=== PATIENT | female | born 1985 | race Hispanic/Latino ===

== ENCOUNTER 2017-05-25 19:18 | Emergency (ER) | payer MEDICAID, OTHER ==
[2017-05-25 20:08] LABS: APPEARANCE,URINE Clear (CLEAR); BILIRUBIN,URINE Negative (NEGATIVE); COLOR,URINE Yellow (YELLOW); GLUCOSE, URINE (UA) Negative (NEGATIVE); KETONES,URINE Negative (NEGATIVE); LEUKOCYTE ESTERASE ,URINE Negative (NEGATIVE); NITRATE,URINE Negative (NEGATIVE); OCCULT BLOOD,URINE Negative (NEGATIVE); PROTEIN,URINE Negative (NEGATIVE)
[2017-05-25 20:10] LABS: HCG,QUAL RESULT NEGATIVE (NEGATIVE)
[2017-05-25 20:33] LABS: BASOPHILS % (AUTO) 0.9 % (0.0-5.0); EOSINOPHILS % (AUTO) 1.2 % (0.0-8.0); HEMATOCRIT 37.6 % (36-48); LYMPHOCYTES % (AUTO) 26.7 % (21.0-51.0); MEAN CORPUSCULAR HEMOGLOBIN 30.8 pg (27.0-33.0); MEAN CORPUSCULAR HGB CONC 34.9 g/dL (32.0-36.0); MEAN CORPUSCULAR VOLUME 88.4 fL (79-99); MONOCYTES % (AUTO) 7.9 % (3.0-13.0); NEUTROPHILS % (AUTO) 63.3 % (40.0-77.0); NUCLEATED RED BLOOD CELLS 0.1 % (0.0-0.19); PLATELET COUNT (AUTO) 442 K/uL (130-400); RED BLOOD CELL COUNT(AUTO) 4.25 MIL/uL (4.00-5.50)
[2017-05-25 20:43] LABS: CREATININE 0.8 mg/dL (0.5-1.5); POTASSIUM 4.1 mmol/L (3.5-5.1)
== END 2017-05-25 23:21 | disposition home or self-care (01) ==
LOC: EDH 19:18
DX: R10.31 Right lower quadrant pain (principal); R10.32 Left lower quadrant pain; Z98.890 Other specified postprocedural states
CPT/HCPCS: 36415; 74176; 80048; 81003; 81025; 83690; 85025

== ENCOUNTER 2018-04-05 17:52 | Emergency (ER) | payer SELFPAY | END 2018-04-05 18:37 | disposition home or self-care (01) | LOC: EDH 17:52 | DX: G89.29 Other chronic pain (principal); R10.13 Epigastric pain; F41.1 Generalized anxiety disorder | CPT/HCPCS: 99281 ==

== ENCOUNTER 2018-07-06 20:33 | Emergency (ER) | payer MEDICAID ==
[2018-07-06 21:35] LABS: APPEARANCE,URINE Clear (CLEAR); BILIRUBIN,URINE Negative (NEGATIVE); COLOR,URINE Yellow (YELLOW); GLUCOSE, URINE (UA) Negative (NEGATIVE); KETONES,URINE Trace mg/dL (NEGATIVE); LEUKOCYTE ESTERASE ,URINE Negative (NEGATIVE); NITRATE,URINE Negative (NEGATIVE); OCCULT BLOOD,URINE Negative (NEGATIVE); PH,URINE 6.5 (5.0-8.0); PROTEIN,URINE Negative (NEGATIVE); UROBILINOGEN,URINE 0.2 mg/dL (0.2-1.0)
[2018-07-06 21:35] LABS: BASOPHILS % (AUTO) 0.6 % (0.0-5.0); EOSINOPHILS % (AUTO) 0.9 % (0.0-8.0); HEMATOCRIT 35.3 % (36-48); LYMPHOCYTES % (AUTO) 20.9 % (21.0-51.0); MEAN CORPUSCULAR HEMOGLOBIN 30.2 pg (27.0-33.0); MEAN CORPUSCULAR HGB CONC 33.9 g/dL (32.0-36.0); MEAN CORPUSCULAR VOLUME 89.1 fL (79-99); MONOCYTES % (AUTO) 7.1 % (3.0-13.0); NEUTROPHILS % (AUTO) 70.5 % (40.0-77.0); PLATELET COUNT (AUTO) 362 K/uL (130-400); RED BLOOD CELL COUNT(AUTO) 3.96 MIL/uL (4.00-5.50); RED CELL DISTRIBUTION WIDTH 13.6 % (11.0-15.5); WHITE BLOOD COUNT (AUTO) 12.6 K/uL (4.8-10.8)
[2018-07-06 21:51] LABS: CREATININE 0.6 mg/dL (0.5-1.5); POTASSIUM 3.5 mmol/L (3.5-5.1)
[2018-07-06 21:55] LABS: AMPHET/METH SCREEN,URINE NEGATIVE (NEGATIVE); BARBITURATE SCREEN, URINE NEGATIVE (NEGATIVE); BENZODIAZEPINES SCREEN,URINE NEGATIVE (NEGATIVE); CANNABINOID SCREEN,URINE NEGATIVE (NEGATIVE); COCAINE SCREEN,URINE NEGATIVE (NEGATIVE); OPIATE SCREEN,URINE NEGATIVE (NEGATIVE); PHENCYCLIDINE SCREEN,URINE NEGATIVE (NEGATIVE)
[2018-07-06 21:56] LABS: ALBUMIN 3.2 g/dL (3.5-5.0); BILIRUBIN,TOTAL 0.1 mg/dL (0.2-1.0); TOTAL PROTEIN, SERUM 6.8 g/dL (6.0-8.3)
== END 2018-07-06 22:27 | disposition home or self-care (01) ==
LOC: EDH 20:33
DX: O99.342 Other mental disorders complicating pregnancy, second trimester (principal); F41.9 Anxiety disorder, unspecified; O26.892 Other specified pregnancy related conditions, second trimester; R53.1 Weakness; Z3A.14 14 weeks gestation of pregnancy; Z98.890 Other specified postprocedural states
CPT/HCPCS: 36415; 80053; 80305; 81003; 85025

== ENCOUNTER 2018-12-18 11:11 | Emergency (ER) | payer MEDICAID ==
[2018-12-18] MEDS ORDERED: TETRACAINE HCL 0.5% 4 ML OPHTH SOLN ONE (11:35)
[2018-12-18] MEDS ORDERED: FLUORESCEIN SODIUM 1 STRIP STRIP ONE (11:35)
[2018-12-18] MEDS ORDERED: ACETAMINOPHEN 325 MG TAB ONE (11:44)
[2018-12-18] MEDS ORDERED: DIPHENHYDRAMINE HCL 25 MG CAPSULE ONE (11:45)
== END 2018-12-18 11:57 | disposition home or self-care (01) ==
LOC: EDH 11:11
DX: O9A.213 Injury, poisoning and certain other consequences of external causes complicating pregnancy, third trimester (principal); O26.893 Other specified pregnancy related conditions, third trimester; H18.822 Corneal disorder due to contact lens, left eye; Z3A.37 37 weeks gestation of pregnancy
CPT/HCPCS: 99284; Q0163

== ENCOUNTER 2019-05-01 17:27 | Emergency (ER) | payer MEDICAID, OTHER ==
[2019-05-01 18:00] LABS: BASOPHILS % (AUTO) 0.4 % (0.0-5.0); EOSINOPHILS % (AUTO) 1.1 % (0.0-8.0); HEMATOCRIT 38.6 % (36-48); LYMPHOCYTES % (AUTO) 33.1 % (21.0-51.0); MEAN CORPUSCULAR HEMOGLOBIN 27.9 pg (27.0-33.0); MEAN CORPUSCULAR HGB CONC 32.9 g/dL (32.0-36.0); MEAN CORPUSCULAR VOLUME 84.8 fL (79-99); MONOCYTES % (AUTO) 9.3 % (3.0-13.0); NEUTROPHILS % (AUTO) 55.8 % (40.0-77.0); PLATELET COUNT (AUTO) 413 K/uL (130-400); RED BLOOD CELL COUNT(AUTO) 4.55 MIL/uL (4.00-5.50); RED CELL DISTRIBUTION WIDTH 14.8 % (11.0-15.5); WHITE BLOOD COUNT (AUTO) 7.6 K/uL (4.8-10.8)
[2019-05-01 18:15] LABS: APPEARANCE,URINE Cloudy (CLEAR); BILIRUBIN,URINE Negative (NEGATIVE); COLOR,URINE Yellow (YELLOW); GLUCOSE, URINE (UA) Negative (NEGATIVE); KETONES,URINE Negative (NEGATIVE); LEUKOCYTE ESTERASE ,URINE Trace (NEGATIVE); NITRATE,URINE Negative (NEGATIVE); OCCULT BLOOD,URINE Moderate (NEGATIVE); PH,URINE 6.5 (5.0-8.0); PROTEIN,URINE Negative (NEGATIVE)
[2019-05-01 18:22] LABS: HCG,QUAL RESULT NEGATIVE (NEGATIVE)
[2019-05-01 18:23] LABS: AMPHET/METH SCREEN,URINE NEGATIVE (NEGATIVE); BARBITURATE SCREEN, URINE NEGATIVE (NEGATIVE); BENZODIAZEPINES SCREEN,URINE NEGATIVE (NEGATIVE); CANNABINOID SCREEN,URINE NEGATIVE (NEGATIVE); COCAINE SCREEN,URINE NEGATIVE (NEGATIVE); OPIATE SCREEN,URINE NEGATIVE (NEGATIVE); PHENCYCLIDINE SCREEN,URINE NEGATIVE (NEGATIVE)
[2019-05-01 18:24] LABS: CREATININE 0.8 mg/dL (0.5-1.5); POTASSIUM 3.6 mmol/L (3.5-5.1)
[2019-05-01] MEDS ORDERED: KETOROLAC TROMETHAMINE 30MG/ML ONE (18:25)
[2019-05-01] MEDS ORDERED: ONDANSETRON ODT 4 MG TAB ONE (18:25)
[2019-05-01] MEDS ORDERED: SODIUM CHLORIDE 0.9% 1000ML 1,000 ML IV ONE (18:25)
[2019-05-01] MEDS ORDERED: ONDANSETRON HCL 4 MG/2 ML VIAL ONE (18:27)
[2019-05-01 18:37] LABS: ALBUMIN 3.9 g/dL (3.5-5.0); BILIRUBIN,DIRECT 0.1 mg/dL (0.0-0.3); BILIRUBIN,TOTAL 0.3 mg/dL (0.2-1.0); TOTAL PROTEIN, SERUM 7.6 g/dL (6.0-8.3)
[2019-05-01 18:52] LABS: BACTERIA,URINE Moderate /HPF (None Seen); MUCUS,URINE Few LPF (None Seen); SQUAMOUS EPITHELIAL CELL,UR Many /HPF (0-2)
== END 2019-05-01 20:09 | disposition home or self-care (01) ==
LOC: EDH 17:27
DX: K29.00 Acute gastritis without bleeding (principal)
CPT/HCPCS: 36415; 76705; 80048; 80076; 80305; 81001; 81025; 82550; 83690; 85025; 96361; 96374; 96375; 99285; J1885; J2405; J7030

== ENCOUNTER 2019-11-14 10:15 | Emergency (ER) | payer MEDICAID ==
[2019-11-14 10:34] LABS: BASOPHILS % (AUTO) 0.5 % (0.0-5.0); EOSINOPHILS % (AUTO) 0.7 % (0.0-8.0); HEMATOCRIT 39.6 % (36-48); LYMPHOCYTES % (AUTO) 27.7 % (21.0-51.0); MEAN CORPUSCULAR HGB CONC 33.3 g/dL (32.0-36.0); MONOCYTES % (AUTO) 6.4 % (3.0-13.0); NEUTROPHILS % (AUTO) 64.5 % (40.0-77.0); PLATELET COUNT (AUTO) 420 K/uL (130-400); RED BLOOD CELL COUNT(AUTO) 4.55 MIL/uL (4.00-5.50); RED CELL DISTRIBUTION WIDTH 14.7 % (11.0-15.5); WHITE BLOOD COUNT (AUTO) 8.2 K/uL (4.8-10.8)
[2019-11-14 10:54] LABS: CREATININE 0.8 mg/dL (0.5-1.5); POTASSIUM 3.5 mmol/L (3.5-5.1)
[2019-11-14 10:59] LABS: ALBUMIN 3.6 g/dL (3.5-5.0); BILIRUBIN,TOTAL 0.4 mg/dL (0.2-1.0); TOTAL PROTEIN, SERUM 7.2 g/dL (6.0-8.3)
[2019-11-14 11:04] LABS: CREATINE KINASE, TOTAL 61 U/L (21-232); MYOGLOBIN 29 ng/mL (10-92); TROPONIN I < 0.04 ng/mL (0.00-0.06)
[2019-11-14] MEDS ORDERED: ACETAMINOPHEN 325 MG TAB ONE (12:00)
== END 2019-11-14 12:19 | disposition home or self-care (01) ==
LOC: EDH 10:15
DX: R07.89 Other chest pain (principal); K20.9 Esophagitis, unspecified; F43.0 Acute stress reaction; Z20.828 Contact with and (suspected) exposure to other viral communicable diseases; F41.9 Anxiety disorder, unspecified; Z98.890 Other specified postprocedural states
CPT/HCPCS: 36415; 80053; 81025; 82550; 83874; 84484; 85025; 87426; 93005; 99284; U0003

== ENCOUNTER 2019-11-29 22:42 | Emergency (ER) | payer MEDICAID ==
[2019-11-29] MEDS ORDERED: SODIUM CHLORIDE 0.9% 1000ML 1,000 ML IV ONE (22:43)
[2019-11-29 23:02] LABS: BASOPHILS % (AUTO) 0.5 % (0.0-5.0); EOSINOPHILS % (AUTO) 1.3 % (0.0-8.0); HEMATOCRIT 36.7 % (36-48); LYMPHOCYTES % (AUTO) 38.8 % (21.0-51.0); MEAN CORPUSCULAR HEMOGLOBIN 29.4 pg (27.0-33.0); MEAN CORPUSCULAR HGB CONC 34.1 g/dL (32.0-36.0); MEAN CORPUSCULAR VOLUME 86.4 fL (79-99); MONOCYTES % (AUTO) 8.8 % (3.0-13.0); NEUTROPHILS % (AUTO) 50.4 % (40.0-77.0); PLATELET COUNT (AUTO) 392 K/uL (130-400); RED BLOOD CELL COUNT(AUTO) 4.25 MIL/uL (4.00-5.50); RED CELL DISTRIBUTION WIDTH 14.4 % (11.0-15.5); WHITE BLOOD COUNT (AUTO) 9.7 K/uL (4.8-10.8)
[2019-11-29 23:11] LABS: CREATININE 0.9 mg/dL (0.5-1.5); POTASSIUM 3.9 mmol/L (3.5-5.1)
[2019-11-29 23:16] LABS: ALBUMIN 3.8 g/dL (3.5-5.0); BILIRUBIN,TOTAL 0.2 mg/dL (0.2-1.0); TOTAL PROTEIN, SERUM 7.3 g/dL (6.0-8.3)
[2019-11-29] MEDS ORDERED: KETOROLAC TROMETHAMINE 30MG/ML ONE (23:43)
[2019-11-30] MEDS ORDERED: CYCLOBENZAPRINE HCL 10 MG TABLET ONE (00:37)
== END 2019-11-30 01:10 | disposition home or self-care (01) ==
LOC: EDH 22:42
DX: R07.89 Other chest pain (principal); M62.830 Muscle spasm of back; F45.8 Other somatoform disorders; R51 Headache; F41.9 Anxiety disorder, unspecified; Z79.899 Other long term (current) drug therapy; Z98.890 Other specified postprocedural states
CPT/HCPCS: 36415; 80053; 84484; 85025; 93005; 96361; 96374; 99284; J1885; J7030

== ENCOUNTER 2023-11-02 10:43 | Emergency (ER) | payer BC, MEDICAID ==
[~2023-11-02] VITALS: Ht 157.5 cm; Wt 90.7 kg
[2023-11-02 11:25] LABS: BASOPHILS # (AUTO) 0.05 K/uL (0.00-0.20); BASOPHILS % (AUTO) 0.8 % (0.0-5.0); EOSINOPHILS # (AUTO) 0.08 K/uL (0.00-0.70); EOSINOPHILS % (AUTO) 1.2 % (0.0-8.0); HEMATOCRIT 40.4 % (36-48); IMMATURE GRANULOCYTE ABSOLUTE 0.02 K/uL (0-1); LYMPHOCYTES # (AUTO) 2.4 K/uL (1.0-4.8); LYMPHOCYTES % (AUTO) 36.1 % (21.0-51.0); MEAN CORPUSCULAR HEMOGLOBIN 30.7 pg (27.0-33.0); MEAN CORPUSCULAR HGB CONC 34.7 g/dL (32.0-36.0); MEAN CORPUSCULAR VOLUME 88.6 fL (79-99); MONOCYTES # (AUTO) 0.7 K/uL (0.1-1.0); MONOCYTES % (AUTO) 10.5 % (3.0-13.0); NEUTROPHILS # (AUTO) 3.4 K/uL (1.8-7.7); NEUTROPHILS % (AUTO) 51.1 % (40.0-77.0); PLATELET COUNT (AUTO) 370 K/uL (130-400); RED BLOOD CELL COUNT(AUTO) 4.56 MIL/uL (4.00-5.50); RED CELL DISTRIBUTION WIDTH 13.4 % (11.0-15.5); WHITE BLOOD COUNT (AUTO) 6.7 K/uL (4.8-10.8)
[2023-11-02 11:27] LABS: CREATININE 0.7 mg/dL (0.5-1.0); POTASSIUM 3.7 mmol/L (3.5-5.1)
[2023-11-02 11:31] LABS: BILIRUBIN,TOTAL 0.6 mg/dL (0.2-1.0); TOTAL PROTEIN, SERUM 7.8 g/dL (6.0-8.3)
[2023-11-02] MEDS: MAG/ALUM/SIMETH 30 ML UDCUP PO ONE (11:36)
[2023-11-02] MEDS: DICYCLOMINE HCL 10 MG/5 ML ML PO ONE (11:36)
[2023-11-02] MEDS: 0.9%NACL 1000ML 1,000 ML IV ONE (11:36)
[2023-11-02] MEDS: FAMOTIDINE 20MG VIAL IV ONE (11:36)
[2023-11-02] MEDS: LIDOCAINE HCL 2% VISCOUS 15 ML UDCUP PO ONE (11:36)
[2023-11-02 11:42] LABS: APPEARANCE,URINE CLEAR (CLEAR); BILIRUBIN,URINE NEGATIVE (NEGATIVE); COLOR,URINE LIGHT-YELLOW (YELLOW); GLUCOSE, URINE (UA) NEGATIVE (NEGATIVE); KETONES,URINE NEGATIVE (NEGATIVE); LEUKOCYTE ESTERASE ,URINE NEGATIVE Leu/uL (NEGATIVE); NITRATE,URINE NEGATIVE (NEGATIVE); OCCULT BLOOD,URINE NEGATIVE (NEGATIVE); PH,URINE 6.5 (5.0-8.0); PROTEIN,URINE NEGATIVE (NEGATIVE); UROBILINOGEN,URINE 0.2 mg/dL (0.2-1.0)
[2023-11-02 11:47] LABS: ADD UA MICROSCOPIC NO
[2023-11-02] MEDS ORDERED: SUCR1TAB28 PO (12:07)
[2023-11-02 12:53] VITALS: BP 137/59; PULSE 66; RESP 20; O2SAT 99
== END 2023-11-02 12:54 | disposition home or self-care (01) ==
LOC: EDH 10:43
DX: K29.00 Acute gastritis without bleeding (principal); Z79.899 Other long term (current) drug therapy
CPT/HCPCS: 99284; 96374; 96361; 80053; 83690; 85025; 81003; 81025; 36415; J3490; J7030

== ENCOUNTER 2024-03-16 21:20 | Emergency (ER) | payer BC ==
[~2024-03-16] VITALS: Ht 157.5 cm; Wt 91.2 kg
[~2024-03-16 21:20] MED LIST: SUCR1TAB28 PO
[2024-03-16 22:01] LABS: BASOPHILS # (AUTO) 0.05 K/uL (0.00-0.20); BASOPHILS % (AUTO) 0.5 % (0.0-5.0); EOSINOPHILS # (AUTO) 0.13 K/uL (0.00-0.70); EOSINOPHILS % (AUTO) 1.3 % (0.0-8.0); HEMATOCRIT 37.2 % (36-48); IMMATURE GRANULOCYTE ABSOLUTE 0.02 K/uL (0-1); LYMPHOCYTES # (AUTO) 3.3 K/uL (1.0-4.8); LYMPHOCYTES % (AUTO) 32.9 % (21.0-51.0); MEAN CORPUSCULAR HEMOGLOBIN 29.8 pg (27.0-33.0); MEAN CORPUSCULAR HGB CONC 33.9 g/dL (32.0-36.0); MEAN CORPUSCULAR VOLUME 87.9 fL (79-99); MONOCYTES # (AUTO) 0.9 K/uL (0.1-1.0); MONOCYTES % (AUTO) 9.2 % (3.0-13.0); NEUTROPHILS # (AUTO) 5.7 K/uL (1.8-7.7); NEUTROPHILS % (AUTO) 55.9 % (40.0-77.0); PLATELET COUNT (AUTO) 400 K/uL (130-400); RED BLOOD CELL COUNT(AUTO) 4.23 MIL/uL (4.00-5.50); RED CELL DISTRIBUTION WIDTH 13.5 % (11.0-15.5); WHITE BLOOD COUNT (AUTO) 10.1 K/uL (4.8-10.8)
[2024-03-16 22:08] LABS: CREATININE 0.8 mg/dL (0.5-1.0); POTASSIUM 3.9 mmol/L (3.5-5.1)
[2024-03-17 00:30] LABS: ALBUMIN 3.8 g/dL (3.5-5.0); BILIRUBIN,DIRECT 0.1 mg/dL (0.0-0.3); BILIRUBIN,TOTAL 0.3 mg/dL (0.2-1.0); TOTAL PROTEIN, SERUM 7.3 g/dL (6.0-8.3)
[2024-03-17 01:06] LABS: ADD UA MICROSCOPIC YES; APPEARANCE,URINE CLEAR (CLEAR); BILIRUBIN,URINE NEGATIVE (NEGATIVE); COLOR,URINE LIGHT-YELLOW (YELLOW); GLUCOSE, URINE (UA) NEGATIVE (NEGATIVE); KETONES,URINE 10 mg/dL (NEGATIVE); LEUKOCYTE ESTERASE ,URINE NEGATIVE Leu/uL (NEGATIVE); NITRATE,URINE NEGATIVE (NEGATIVE); OCCULT BLOOD,URINE NEGATIVE (NEGATIVE); PH,URINE 6.5 (5.0-8.0); PROTEIN,URINE NEGATIVE (NEGATIVE); UROBILINOGEN,URINE 0.2 mg/dL (0.2-1.0)
[2024-03-17 01:07] LABS: BACTERIA,URINE FEW /HPF (None Seen); MUCUS,URINE RARE LPF (None Seen); SQUAMOUS EPITHELIAL CELL,UR FEW /HPF (0-2)
[2024-03-17] MEDS ORDERED: IOHEXOL 350 MG/ML 100ML INFUS..BTL IV ONE (01:29)
--- NOTE | 2024-03-17 02:34 | HMCIMG ---
CT ABDOMEN/PELVIS W/CONTRAST HISTORY: Abdominal pain COMPARISON: 05/25/2017 TECHNIQUE: Multiple sequential axial images of the abdomen and pelvis were obtained from the dome of the diaphragm through symphysis pubis. Patient was given 100 cc of Omnipaque through intravenous route. Oral contrast was not given. FINDINGS: No pleural effusion is seen bilaterally. There is no evidence of parenchymal disease or pulmonary nodule of the visualized lower lungs. Degenerative changes of the thoracolumbar spine are present. The heart is not enlarged. Liver is enlarged with fatty changes measuring 20 cm. Gallbladder is distended. The liver, spleen, adrenal glands and pancreas are unremarkable. There is no evidence of hydronephrosis bilaterally. No evidence of renal stone is seen. Fecal material is seen in the colon. There are normal size retroperitoneal and mesenteric lymph nodes. No ascites is seen. No CT evidence of acute appendicitis is seen. Clinical correlation is recommended. Pelvic sidewalls are symmetric bilaterally. Bladder is poorly distended. IMPRESSION: 1. Fecal material in the colon. No ascites. CT was performed with one or more following dose reduction techniques: automated exposure control, adjustment of the mA and kv according to patient's size, or use of a iterative reconstruction technique.
--- NOTE | 2024-03-17 03:00 | ERN ---
General Chief Complaint: Abdominal Pain Stated Complaint: SEVERE ABD PAIN Time Seen by MD: 21:26 History of Present Illness Initial Comments Mrs Gray is a 38-year-old female significant past medical history morbid obesity and GERD who presents today with a chief complaint of abdominal pain. Patient reports she has a history of a hernia in distended gallbladder. Patient reports that she has been trying to get in with a surgeon to have these things fixed but unfortunately pain has gotten so bad that she needed to come in get evaluated. 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 Past Medical History Past Medical History: Other Medical History Other: HX OF GASTRITIS Past Surgical History: Female( History) History: Not Applicable LMP: Mar 06, 2024 ROS Dictation Constitutional: Negative for fever,chills, and weight loss Eyes: Negative for injury, pain,redness, and discharge ENT: Negative for injury,pain or swelling Cardiovascular: Negative for chest pain, palpitations, and edema Respiratory: Negative for shortness of breath, cough, and wheezing, Abdomen/GI: Positive for abdominal pain Back: Negative for injury and pain : Negative for injury, bleeding and discharge MS/Extremity: Negative for injury and deformity Skin: Negative for rash, and discoloration Neuro: Negative for headache, weakness, numbness, tingling, and seizure Psych: Negative for suicide ideation, homicidal ideation, and hallucinations Physical Exam Physical Exam Dictation General: awake, alert, NAD Head/Face: Normocephalic, atraumatic Eyes: PERRL, EOMI ENT: oral cavity clear, Neck: Trachea midline, supple, Cardiovascular: RRR, normal S1/S2, Respiratory: CTAB, no respiratory distress, No rales or wheezes Abdomen: Pain with palpation in the right upper quadrant and epigastric region Skin: Warm, dry, normal turgor, no rash MS/Extremity: Pulses equal, no cyanosis, neurovascular intact, FROM Neuro: COAx4, GCS 15, strength 5/5, CN 2-12 intact, Psych: Normal behavior, mood, and affect normal Results Laboratory and Microbiology Lab and Micro Result Laboratory Tests Test 03/16/24 21:54 12/20/24 00:17 White Blood Count 10.1 K/uL (4.8-10.8) Red Blood Count 4.23 MIL/uL (4.00-5.50) Hemoglobin 12.6 g/dL (12.0-16.0) Hematocrit 37.2 % (36-48) Mean Corpuscular Volume 87.9 fL (79-99) Mean Corpuscular Hemoglobin 29.8 pg (27.0-33.0) Mean Corpuscular Hemoglobin Concent 33.9 g/dL (32.0-36.0) Red Cell Distribution Width 13.5 % (11.0-15.5) Platelet Count 400 K/uL (130-400) Mean Platelet Volume 10.4 fL (7.5-10.5) Immature Granulocyte % (Auto) 0.2 % (0-1) Neutrophils (%) (Auto) 55.9 % (40.0-77.0) Lymphocytes (%) (Auto) 32.9 % (21.0-51.0) Monocytes (%) (Auto) 9.2 % (3.0-13.0) Eosinophils (%) (Auto) 1.3 % (0.0-8.0) Basophils (%) (Auto) 0.5 % (0.0-5.0) Neutrophils # (Auto) 5.7 K/uL (1.8-7.7) Lymphocytes # (Auto) 3.3 K/uL (1.0-4.8) Monocytes # (Auto) 0.9 K/uL (0.1-1.0) Eosinophils # (Auto) 0.13 K/uL (0.00-0.70) Basophils # (Auto) 0.05 K/uL (0.00-0.20) Absolute Immature Granulocyte (auto 0.02 K/uL (0-1) Nucleated Red Blood Cells 0.0 % (0.0-0.19) Sodium Level 137 mmol/L (136-145) Potassium Level 3.9 mmol/L (3.5-5.1) Chloride Level 104 mmol/L (101-111) Carbon Dioxide Level 31 mmol/L (21-32) Blood Urea Nitrogen 15 mg/dL (7-18) Creatinine 0.8 mg/dL (0.5-1.0) Glomerular Filtration Rate Calc 96 mL/min (>90) Random Glucose 87 mg/dL (70-105) Total Calcium 8.7 mg/dL (8.5-10.1) Total Bilirubin 0.3 mg/dL (0.2-1.0) Direct Bilirubin 0.1 mg/dL (0.0-0.3) Aspartate Amino Transf (AST/SGOT) 18 U/L (10-37) Alanine Aminotransferase (ALT/SGPT) 18 U/L (12-78) Alkaline Phosphatase 52 U/L (50-136) Total Protein 7.3 g/dL (6.0-8.3) Albumin 3.8 g/dL (3.5-5.0) Amylase Level 75 U/L (25-115) Lipase 58 U/L (16-77) Urine Color LIGHT-YELLOW (YELLOW) Urine Appearance CLEAR (CLEAR) Urine pH 6.5 (5.0-8.0) Urine Specific [place] 1.023 (1.001-1.031) Urine Protein NEGATIVE mg/dL (NEGATIVE) Urine Glucose (UA) NEGATIVE mg/dL (NEGATIVE) Urine Ketones 10 mg/dL (NEGATIVE) H Urine Occult Blood NEGATIVE (NEGATIVE) Urine Nitrate NEGATIVE (NEGATIVE) Urine Bilirubin NEGATIVE mg/dL (NEGATIVE) Urine Urobilinogen 0.2 mg/dL (0.2-1.0) Urine Leukocyte Esterase NEGATIVE [place]/uL Urine RBC 2-5 /HPF (0-1) H Urine WBC 2-5 /HPF (0-1) H Urine Squamous Epithelial Cells FEW /HPF (0-2) Urine Bacteria FEW /HPF (None Seen) Urine HCG, Qualitative NEGATIVE (NEGATIVE) MDM MDM: Differential diagnosis: Gastritis, cholecystitis, pancreatitis, gastroenteritis, 38-year-old female coming in to be evaluated for abdominal discomfort. Per patient this has been ongoing for several days and believes it might be her gallbladder. Laboratory workup which includes liver enzymes were within normal limits CT of the abdomen disclose constipation ultrasound did not disclose peric holecystic fluid. Patient will be discharged in stable condition with a diagnosis of gastritis. I advised her appropriate follow up with surgeon and or primary care physician to continue monitoring. Patient will also be getting medication for constipation and gastritis. ED Course Orders Procedure Category Date Status Time Vital Signs Per CPOE 03/16/24 Transmitted Routine 21:44 Saline Lock Iv CPOE 03/16/24 Transmitted 21:44 Cbc With Differential LAB 03/16/24 Complete 21:44 Lipase LAB 03/16/24 Complete 21:44 Urinalysis Profile LAB 03/16/24 Complete 21:44 Basic Metabolic Panel LAB 03/16/24 Complete 21:44 Amylase LAB 03/16/24 Complete 23:51 ,Urine Test LAB 03/16/24 Complete 23:51 Hepatic Function Panel LAB 03/16/24 Complete 23:51 Ct Abdomen/Pelvis CT 03/17/24 Resulted W/Contrast 01:20 Iohexol (Omnipaque) PHA 03/17/24 Complete 01:29 Us Abdominal Ruq\Ltd US 03/17/24 Taken 03:44 Lidocaine Hcl 2% PHA 03/17/24 Complete Viscous (Lidocaine Hcl 07:30 Mag/Alum/Simeth 30ml PHA 03/17/24 Complete (Maalox Plus 30ml) 07:30 Current Medications Medications (Trade) Dose Ordered Sig/Ruma Route PRN Reason Start Time Stop Time Status Last Admin Dose Admin Al Hydroxide/Mg Hydroxide (MAALox PLUS 30ML) 30 ml ONCE ONCE PO 03/17/24 07:30 03/17/24 07:31 DC 03/17/24 07:32 Iohexol (Omnipaque) 35,000 mg STK-MED ONCE IV 03/17/24 01:29 03/17/24 01:30 DC Lidocaine HCl (Lidocaine HCl 2% Viscous) 10 ml ONCE ONCE PO 03/17/24 07:30 03/17/24 07:31 DC 03/17/24 07:32 Vital Signs Date Time Temp Pulse Resp B/P (MAP) Pulse Ox O2 Delivery O2 Flow Rate FiO2 03/17/24 07:21 97.9 76 16 129/78 99 Room Air* 0 03/17/24 06:21 97.9 68 16 118/74 99 Room Air* 0 03/17/24 05:30 98.1 66 15 110/71 97 Room Air* 0 03/17/24 04:20 97.5 70 18 121/79 98 Room Air* 0 03/17/24 03:15 97.5 65 17 113/77 100 Room Air* 0 03/17/24 02:00 97.5 62 16 115/75 100 Room Air* 0 03/17/24 00:50 97.7 66 18 128/78 100 Room Air* 0 21 03/16/24 21:41 97.2 63 20 134/89 100 Room Air DX & DISP Disposition: Discharge Departure Impression: Primary Impression: Acute gastritis Additional Impression: Constipation Condition: Stable Scripts Pantoprazole Sodium (Protonix) 40 Mg Ectab 1 TAB PO DAILY for 30 Days, #30 TAB 0 Refills Prov: LUIS BATEMAN MD 03/17/24 Linaclotide (Linzess) 72 Mcg Capsule 72 MCG PO DAILY for 7 Days, #7 CAP Prov: LUIS BATEMAN MD 03/17/24 Additional Instructions: FOLLOW-UP WITH PRIMARY CARE PROVIDER IN 1 TO 2 DAYS. TAKE MEDICATIONS DIRECTED HERE IN THE EMERGENCY ROOM. OKAY TO CONTINUE HOME MEDICATIONS UNLESS OTHERWISE DISCUSSED DURING YOUR VISIT IN THE EMERGENCY ROOM TODAY. RETURN TO YOUR NEAREST EMERGENCY ROOM IF SYMPTOMS WORSEN OR IF THERE IS NO IMPROVEMENT. CALL 911 IF YOU NEED IMMEDIATE ASSISTANCE. TAKE TYLENOL [id number] NEEDED AND IF NO CONTRAINDICATIONS ARE PRESENT. INCREASE ORAL HYDRATION. A WOUND CULTURE OR URINE CULTURE WAS ORDERED HERE IN THE EMERGENCY ROOM DEPARTMENT PLEASE FOLLOW-UP WITH PRIMARY CARE PROVIDER AND ADVISE THEM TO GET REPEAT PORTS FROM OUR FACILITY. IF YOU HAD ANY LOVE WRAP/SPLINTS THAT WERE APPLIED HERE, PLEASE DO NOT REMOVE THEM UNTIL YOU SEE YOUR PRIMARY CARE OR SPECIALTY. Referrals: Referrals: SELF,REFERRAL (PCP) MACI LEBRON MD, OYETUNDE O MD Time of Disposition: 07:55 MARGARET DAVIS MD Mar 17, 2024 03:00 LUIS BATEMAN MD Mar 17, 2024 07:58
[2024-03-17 07:21] VITALS: BP 129/78; PULSE 76; RESP 16; TEMP 97.9; O2SAT 99
[2024-03-17] MEDS: LIDOCAINE HCL 2% VISCOUS 15 ML UDCUP PO ONE (07:32)
[2024-03-17] MEDS: MAG/ALUM/SIMETH 30 ML UDCUP PO ONE (07:32)
[2024-03-17] MEDS ORDERED: LINA72CA PO (07:57)
[2024-03-17] MEDS ORDERED: PANT40TA55 PO (07:57)
--- NOTE | 2024-03-17 08:53 | HMCIMG ---
US ABDOMINAL RUQ\E\LTD HISTORY: Gallstone COMPARISON: None TECHNIQUE: Right upper quadrant abdominal ultrasound study was performed. FINDINGS: Liver measures 15 cm. The visualized portion of the pancreas is within normal limits. Liver is echogenic consistent with liver parenchymal disease. No gallstone is seen. Common duct measures 3 mm. No evidence of gallbladder wall thickening is seen. Right kidney measures 12 x 4 x 6 cm. No hydronephrosis is seen of the right kidney. IMPRESSION: 1. No gallstones or ductal dilatation is seen. 2. No hydronephrosis is seen.
== END 2024-03-17 08:08 | disposition home or self-care (01) ==
LOC: EDH 21:20
DX: K29.00 Acute gastritis without bleeding (principal); K59.00 Constipation, unspecified; E66.01 Morbid (severe) obesity due to excess calories; K21.9 Gastro-esophageal reflux disease without esophagitis; Z79.899 Other long term (current) drug therapy; Z98.890 Other specified postprocedural states
CPT/HCPCS: 99285; 82150; 80076; 80048; 83690; 85025; 81001; 81025; 36415; 74177; 76705; Q9967

== ENCOUNTER 2024-05-24 07:30 | Day surgery (SDC) | payer MEDICAID ==
--- NOTE | 2024-05-23 09:17 | EKG ---
[facility] Test Date: 2024-05-23 Test Time: 09:44:06 Pat Name: YUKI KUHN Department: [facility] Room: Gender: F Kennel Helper: [id number] : 1985 Requested By: ANGELITA GILES Order Number: [id number] Reading MD: Romero Santos Measurements Intervals [place] Rate: 59 P: 12 WV: 188 QRS: 36 QRSD: 84 T: 33 QT: 448 QTc: 444 Interpretive Statements Sinus rhythm T Wave Flattening Compared to ECG 11/29/2019 22:44:01 No significant changes Electronically Signed On 05-24-2024 07:37:59 LEAD TINNER by Romero Santos Please click the below link to view image of tracing.
[2024-05-23 09:20] LABS: BASOPHILS # (AUTO) 0.04 K/uL (0.00-0.20); BASOPHILS % (AUTO) 0.7 % (0.0-5.0); EOSINOPHILS # (AUTO) 0.07 K/uL (0.00-0.70); EOSINOPHILS % (AUTO) 1.3 % (0.0-8.0); HEMATOCRIT 39.6 % (36-48); IMMATURE GRANULOCYTE ABSOLUTE 0.02 K/uL (0-1); LYMPHOCYTES # (AUTO) 1.8 K/uL (1.0-4.8); LYMPHOCYTES % (AUTO) 33.6 % (21.0-51.0); MEAN CORPUSCULAR HEMOGLOBIN 29.6 pg (27.0-33.0); MEAN CORPUSCULAR HGB CONC 33.3 g/dL (32.0-36.0); MEAN CORPUSCULAR VOLUME 88.8 fL (79-99); MONOCYTES # (AUTO) 0.4 K/uL (0.1-1.0); MONOCYTES % (AUTO) 7.7 % (3.0-13.0); NEUTROPHILS # (AUTO) 3.1 K/uL (1.8-7.7); NEUTROPHILS % (AUTO) 56.3 % (40.0-77.0); PLATELET COUNT (AUTO) 356 K/uL (130-400); RED BLOOD CELL COUNT(AUTO) 4.46 MIL/uL (4.00-5.50); RED CELL DISTRIBUTION WIDTH 13.8 % (11.0-15.5); WHITE BLOOD COUNT (AUTO) 5.5 K/uL (4.8-10.8)
[2024-05-23 09:29] VITALS: BP 126/78; PULSE 64; RESP 16; TEMP 97.7
[2024-05-23 09:29] LABS: CREATININE 0.7 mg/dL (0.5-1.0); INR 1.02 (0.85-1.15); POTASSIUM 3.8 mmol/L (3.5-5.1); PROTHROMBIN TIME 10.8 SEC (9.6-11.6)
[2024-05-23 09:31] LABS: PARTIAL THROMBOPLASTIN TIME 27.3 SEC (26.3-35.5)
[2024-05-24] VITALS (17 sets, daily range): BP systolic 90–122; BP diastolic 48–87; PULSE 60–83; RESP 16–20; TEMP 97–206.6
[~2024-05-24] VITALS: Ht 157.5 cm; Wt 89.5 kg
[2024-05-24] MEDS: IOHEXOL-350 50ML VIAL IV ONE
[2024-05-24] MEDS: BUPIvacaine/PF 0.25% 30ML VIAL IJ ONE
[~2024-05-24 07:30] MED LIST changes: +NEXIUM PO; -SUCR1TAB28 PO
[2024-05-24] MEDS ORDERED: proPOFol 10 MG/ML 20ML VIAL IV ONE (09:09)
[2024-05-24] MEDS ORDERED: rocuRONium bROMide 10MG/1ML 5ML VL ONE (09:09)
[2024-05-24] MEDS ORDERED: LIDOCAINE PF 100MG/5ML (2%) SYRINGE 5ML ONE (09:09)
[2024-05-24] MEDS ORDERED: SUCCINYLCHOLINE CHLORIDE 20 MG/ML 10 ML VIAL ONE (09:09)
[2024-05-24] MEDS ORDERED: MIDAZOLAM HCL 1 MG/ML 2ML VIAL ONE (09:09)
[2024-05-24] MEDS ORDERED: FENTanyl CITRate PF 50 MCG/1 ML 2ML VIAL ONE (09:09)
[2024-05-24] MEDS: ceFAZolin SODIUM 2 GM VIAL ONE (09:16)
[2024-05-24] MEDS ORDERED: ROPivacaine 0.5% 5MG/ML 30ML ONE (09:22)
[2024-05-24] MEDS ORDERED: ESOM20CA60 PO (09:29)
[2024-05-24] MEDS: LACTATED RINGERS 1000ML 1,000 ML IV ONE (09:30)
[2024-05-24] MEDS ORDERED: NEOSTIGMINE METHYLSULFATE 1MG/ML IV ONE (10:30)
[2024-05-24] MEDS ORDERED: GLYCOPYRROLATE 0.2 MG/ML 5 ML VIAL ONE (10:30)
--- NOTE | 2024-05-24 10:39 | OP ---
Operative Note: DATE OF PROCEDURE: 05/24/24 SURGEON: ANGELITA GILES MD TEST DESK OPERATOR: [Please review operative record] ANESTHESIA: [General and local] ANESTHESIOLOGIST/HVAC SALES REPRESENTATIVE: [Please review operative record] PREOPERATIVE DIAGNOSIS: [Symptomatic cholelithiasis] POSTOPERATIVE DIAGNOSIS: [Same] SYNOPSIS: [Mildly thin gallbladder, IC negative.] PROCEDURE: [Laparoscopic cholecystectomy, intraoperative cholangiogram] ESTIMATED BLOOD LOSS: [20 cc] INDICATIONS: [Patient is 38-year-old female with chronic right upper quadrant abdominal pain postprocedure of the. Ultrasound showing gallstones. Patient failed conservative management with dietary changes and analgesics. Recommendation with the feeding for cholecystectomy. Risks, benefits, alternatives were discussed patient. All questions were answered. Patient agreed to proceed with surgical intervention] DESCRIPTION OF PROCEDURE: [After proper consent was obtained, the patient was taken to the operating room and placed in the supine position on the operating table. General endotracheal anesthesia was then induced. The patients abdomen was sterilely prepped and draped in the standard surgical fashion. Through a RIGHT subcostal incision, Veress needle was inserted into the per itoneal cavity. Insufflation was allowed to 12 mmHg. Through a epigastric incision, 5mm trocar and laparoscope were inserted in to the peritoneal cavity using [employer]. Veress needle and its vicinity were examined with no signs of injury. Additional working trocars were placed under direct visualization. Patient was positioned at 20 reverse Trendelenburg, slight tilt to the left. Gallbladder was examined, it appeared mildly inflamed. Gallbladder fundus was grasped and retracted cephalad. Infundibulum was grasped and retracted medially and laterally to accomplish my dissection. At this time, Calots triangle was dissected using a combination of blunt dissection and electrocautery. the cystic duct wall and cystic artery were circumferentially dissected. A clip was placed as high up on the cystic duct as possible. Ductotomy was performed on the cystic duct using sharp scissors. Cholangiogram was obtained. This revealed good distal flow into duodenum, no intraductal filling defect and good visualization of hepatic radicles. The cystic duct was then clipped 3 times and sharply divided with the 3 clips staying behind.The cystic artery was then dissected free and also doubly clipped and also ligated. The gallbladder was then taken off its peritoneal attachment with hook electrocautery off the gallbladder bed fossa. Hemostasis was obtained. A quick look was taken to the diaphragmatic area since patient also has a history of hiatal hernia and reflux. There was no obvious diaphragmatic defect, the entire stomach was within the peritoneal cavity, there was fat pad potentially obscuring a sliding hiatal hernia as well as some laxity on the tis kacy. The gallbladder was then removed with an EndoCatch bag through an 12 mm port. The port of this fascia was closed with 0 Vicryl suture through a suture passer. Final inspection revealed no leakage of bile and adequate hemostasis. The abdomen was then allowed to collapse. All skin incisions were closed with 4- 0 Monocryl in running subcuticular fashion. The incisions were covered with Dermabond. The patient was awoken from anesthesia and transported to the recovery room in good condition. All instrument, sponge, and needle counts were correct at the end of the case.] ANGELITA GILES MD May 24, 2024 10:39
--- NOTE | 2024-05-24 10:42 | DS ---
Discharge Summary Hospital Course Patient is a 38-year-old female who was admitted from the outpatient setting for elected laparoscopic cholecystectomy with intraoperative cholangiogram on 05/24/2024 symptomatic cholelithiasis. Patient tolerated the procedure well. No issues intraoperatively. Patient currently in recovery. No major concerns. Patient remains hemodynamically stable, afebrile. Normal sinus rhythm. A very well on 2 L nasal cannula. Abdomen benign. Incision is clean dry and intact. No rebound or guarding. Appropriately tender to palpation. Patient will be observed in recovery and discharge per anesthesia DC criteria. Patient instructed to avoid lifting more than 20 lb for a month. Advanced diet as tolerated. Okay to shower 24 hours of the procedure. Postop meds and postop follow up already in place. Return precautions given including fevers of 101.5 or higher, worsening abdominal pain, intractable nausea and vomiting. ANGELITA GILES MD May 24, 2024 10:42
[2024-05-24] MEDS: ondanSETRON 4MG INJ ONE (10:59)
[2024-05-24] MEDS: morPHINE 2 MG SYG ONE ×2 (11:06→11:18)
[2024-05-24] MEDS: metoCLOPRAmide 10 MG/2 ML VIAL ONE (11:16)
[2024-05-24] MEDS: ketOROlac 30MG VIAL (30MG/ML) ONE (12:01)
[2024-05-24] MEDS ORDERED: IOHEXOL-350 50ML VIAL IV ONE (12:03)
--- NOTE | 2024-05-24 12:49 | HMCIMG ---
CHOLANGIO &/OR PANCRE INTRAOPE REASON: CHOLANGIOGRAM W IOC'S. COMPARISON: None TECHNIQUE: Intraoperative cholangiogram study was performed by referring physician. FINDINGS: Please see procedure report by referring IMPRESSION: Intraoperative films.
== END 2024-05-24 12:48 | disposition home or self-care (01) ==
LOC: DAH 07:30
PROVIDERS: ATTEND Surgery
DX: K81.1 Chronic cholecystitis (principal); K82.8 Other specified diseases of gallbladder; K44.9 Diaphragmatic hernia without obstruction or gangrene; K21.00 Gastro-esophageal reflux disease with esophagitis, without bleeding; E66.01 Morbid (severe) obesity due to excess calories; K76.0 Fatty (change of) liver, not elsewhere classified; Z68.36 Body mass index [BMI] 36.0-36.9, adult; Z79.899 Other long term (current) drug therapy
CPT/HCPCS: 80048; 84703; 85025; 85610; 85730; 86850; 86900; 86901; 36415; 93005; 47563; 88304; 74300; A6260; J1885; A4663; J7030; A4215 ×2; C1758; J7120; J3010; J0330; J2270 ×2; J0665; J3490 ×2; J2003; J2250; J2704; J2405; J2710; J2765; J2795; Q9967 ×2; J0690; C1769 ×3; A4649 ×2; A4213; A4222; A4221; A4216; A4223 ×2; A4600